=== PATIENT | female | born 1980 | race Caucasian/White ===

== ENCOUNTER 2018-03-20 14:21 | Emergency (ER) | payer OTHER ==
[~2018-03-20] VITALS: Ht 157.5 cm; Wt 80.0 kg
[~2018-03-20 14:21] MED LIST: TRAM50TA PO
[2018-03-20 14:40] VITALS: BP 147/85; PULSE 97; RESP 16; TEMP 98.4; O2SAT 98
--- NOTE | 2018-03-20 15:41 | RADRPT ---
EXAM DATE: 03/20/2018 3:37 PM EDT AGE/SEX: 38 years / Female INDICATIONS: Right knee pain after fall. CLINICAL DATA: This is the patient's initial encounter. Patient reports that signs and symptoms have been present for 1 day and indicates a pain score of 10/10. MEDICAL/SURGICAL HISTORY: None. None. COMPARISON: No prior exams available for comparison. FINDINGS: Bony structures are intact and in normal alignment. Joints are intact without dislocation or signifi cant arthropathy. Osseous density is normal. 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 Soft tissues are unremarkable. No radio paque foreign bodies seen. CONCLUSION: Negative right knee series. Electronically signed by: Titus Tobin MD 03/20/2018 3:39 PM EDT
--- NOTE | 2018-03-20 15:46 | PD ---
HPI Chief Complaint: Injury Time Seen by Provider: 15:20 Travel History International Travel<30 days: No Contact w/Intl Traveler<30days: No Traveled to known affect area: No History of Present Illness HPI 38-year-old female presents to the emergency department with complaint of rolling her right ankle and falling in the parking lot at [facility] today after she clocked out to go to lunch, while at work. She is a [employer] employee. She denies hitting her head or loss of consciousness. Denies chest pain, shortness breath, abdominal pain, nausea, vomiting. Denies lightheadedness, dizziness, headache. Reports pain, swelling, and bleeding to her right knee. Denies paresthesias, loss of sensation to the affected extremity. Reports decreased range of motion of the knee secondary to pain. Is up-to-date on tetanus vaccination. Rates pain 10/10. Has not taken any medications to alleviate her symptoms. Worse with palpation, movement. No known relieving factors. Has applied pressure to control bleeding. Denies significant past medical history. No known allergies. Primary CARE providers Dr. Alfredo. Has no other medical complaints. No other modifying factors or associated signs and symptoms. PFSH Past Medical History ?: Not : 2 Para: 2 Miscarriage: 0 : 0 Tubal Ligation: Yes Past Surgical History Tonsillectomy: Yes (2013) Social History Alcohol Use: No Tobacco Use: No Substance Use: No Allergies-Medications (Allergen,Severity, Reaction): Coded Allergies: No Known Allergies (Unverified Adverse Reaction, Unknown, 03/20/18) Reported Meds & Prescriptions Reported Meds & Active Scripts Active Ibuprofen 800 Mg Tab 800 Mg PO Q6HR PRN Tramadol (Tramadol HCl) 50 Mg Tab 50 Mg PO Q6H PRN Review of Systems Except as stated in HPI: all other systems reviewed are Neg Physical Exam Narrative GENERAL: Well-nourished, well-developed female patient, in no acute distress; afebrile, nontoxic-appearing SKIN: Warm and dry. Approximately 2 cm laceration to the right knee, just below the patella; bleeding controlled. HEAD: Atraumatic. Normocephalic. EYES: Pupils equal and round. No scleral icterus. No injection or drainage. ENT: Mucosa pink and moist. Airway patent. NECK: Trachea midline. CARDIOVASCULAR: Regular rate and rhythm. No murmur appreciated. RESPIRATORY: No accessory muscle use. Breath sounds clear and equal bilaterally. GASTROINTESTINAL: Abdomen soft, non-tender, nondistended. Positive bowel sounds. No hepato-splenomegaly, or palpable masses. No guarding. MUSCULOSKELETAL: Right knee with edema below the patella with laceration and bruising noted, nonerythematous; full range of motion and flexion to 90; point tenderness below patella to area of the wound; joint stable with negative drawer test; no obvious deformity. Right Lower extremity is supple and non- tense with 2+ pedal pulse and sensory intact and without erythema or edema. NEUROLOGICAL: Awake and alert. Oriented 3. No obvious cranial nerve deficits. Motor grossly within normal limits. Normal speech. PSYCHIATRIC: Appropriate mood and affect; insight and judgment normal. Data Data Last Documented VS Vital Signs Date Time Temp Pulse Resp B/P (MAP) Pulse Ox O2 Delivery O2 Flow Rate FiO2 03/20/18 14:40 98.4 97 16 147/85 (105) 98 Orders Orders Knee, Complete (4vws) (03/20/18 15:19) Ice/Cold Pack (03/20/18 15:19) Crutches (03/20/18 15:19) Ibuprofen (Motrin) (03/20/18 16:15) Wound Care (03/20/18 16:14) Ed Discharge Order (03/20/18 16:14) [facility] Medical Decision Making Medical Screen Exam Complete: Yes Emergency Medical Condition: Yes Medical Record Reviewed: Yes Differential Diagnosis Patellar fracture, contusion, laceration Narrative Course 38-year-old female with laceration contusion just below the right knee. Up-to- date on tetanus vaccination. Right knee x-ray, ice pack ordered. See my procedure note for laceration repair. 1545: Knee X-Ray 03/20/18 1519 Signed Impressions: CONCLUSION: Negative right knee series. Discussed x-ray findings with the patient. Crutches, ibuprofen ordered. Wound care and dressing applied. Instructed patient to return to the emergency department or follow-up with primary care provider in 10-14 days for staple removal. Instructed patient to follow-up with HR for work-related accident. Instructed patient to follow up with primary care provider. Patient verbalizes understanding and agreement with treatment plan. Patient is medically cleared and stable for discharge. Discussed reasons to return to the emergency department. Patient agrees with treatment plan. The patients vital signs are stable and the patient is stable for outpatient follow-up and treatment. Patient discharged home, stable and in no acute distress. Procedures Procedure Narrative LACERATION LOCATION: Anterior right knee, just below the patella LENGTH: 2 centimeter NUMBER OF STITCHES/JESSICA: 6 jessica REPAIR: The area of the laceration was prepped with Betadine and sterilely draped. The laceration was infiltrated with 1% lidocaine. The wound was copiously irrigated and explored without evidence of foreign body, tendon injury or neurovascular injury. The wound was closed using jessica. This was a single layer repair. A sterile dressing was applied. The patient was advised to keep the dressing clean and dry. Patient tolerated the procedure well. Diagnosis Primary Impression: Contusion of right knee Qualified Codes: S80.01XA - Contusion of right knee, initial encounter Additional Impression: Laceration of right knee Qualified Codes: S81.011A - Laceration without foreign body, right knee, initial encounter Referrals: Som ([facility] Human Resources Primary Care Physician Patient Instructions: Contusion in Adults (ED), Crutch Instructions (ED), General Instructions, Laceration (ED), Staple Care (ED) Additional Instructions: Keep area clean and dry Crutches as needed for support Limit right knee activity to decrease risk of jessica coming undone Ibuprofen or Tylenol as directed and as needed for pain and inflammation Ice pack to area as needed to decrease pain Return to the emergency department in 10 -14 days for staple removal Follow up with primary care provider within 2-4 days Return to the emergency department immediately with worsening of symptoms, particularly if reddened streaks up or down the affected extremity from the suture site, fever, numbness/tingling in the affected extremity, loss of sensation in the affected extremity, severe swelling of the affected Med/Other Pt SpecificInfo: Prescription(s) given Scripts Ibuprofen (Ibuprofen) 800 Mg Tab 800 MG PO Q6HR Y for PAIN, #20 TAB 0 Refills Prov: Latia Suh 03/20/18 Disposition: 01 DISCHARGE HOME Condition: Stable Latia Suh Mar 20, 2018 15:46
[2018-03-20] MEDS ORDERED: IBUPROFEN 800 MG TAB PO ONE (16:15)
[2018-03-20] MEDS ORDERED: IBUP1TAB7 PO (16:19)
== END 2018-03-20 17:35 | disposition home or self-care (01) ==
LOC: NEPD 14:21
DX: S81.011A Laceration without foreign body, right knee, initial encounter (principal); S80.01XA Contusion of right knee, initial encounter; W18.39XA Other fall on same level, initial encounter; Y92.481 Parking lot as the place of occurrence of the external cause; Y99.0 Civilian activity done for income or pay
CPT/HCPCS: 12001; 73564; 99283; E0113